=== PATIENT | female | born 1955 | race Two or more races ===

== ENCOUNTER 2021-09-08 09:51 | Outpatient (REF) | payer MEDICARE, MEDICAID, SELFPAY ==
[2021-09-08 10:42] LABS: COVID-19 Test Positive (Negative)
== END 2021-09-08 09:52 | disposition home or self-care (01) ==
LOC: HO.LAB 09:51
PROVIDERS: Visit Provider Internal Medicine
DX: Z20.822 Contact with and (suspected) exposure to COVID-19 (principal)
CPT/HCPCS: 87635; C9803